=== PATIENT | female | born 1995 | race Caucasian/White ===

== ENCOUNTER 2017-02-20 12:14 | Emergency (ER) | payer SELFPAY ==
--- NOTE | ~2017-02-20 | ER ---
PATIENT'S NAME: KAYLAH JEWELL [facility] AGE: 21 Y [address] ROOM: [place] [id number] LOCATION: ED ADMIT DATE: 02/20/2017 ER/Outpatient Report DISCHARGE DATE: 02/20/2017 FAMILY PHYSICIAN: PHYSICIAN, RADHA ATTENDING PHYSICIAN: Warren Manuel TIME SEEN: 1210 hours. HISTORY OF PRESENT ILLNESS: The patient is a 21-year-old female who presents complaining of toothache. She said that over the last 14 days she has had some soreness in her right wisdom teeth, the pain has got more severe over the last 24 hours. She has also had some increased sinus drainage which has been purulent on occasion. ALLERGIES: INCLUDE CEFZIL WHICH BROKE OUT WITH HIVES. CURRENT MEDICATIONS: control. PAST MEDICAL HISTORY: Unremarkable for any chronic diseases. SURGERIES: Appendectomy, she has had some previous dental surgeries. SOCIAL HISTORY: Nonsmoker. Alcohol socially. REVIEW OF SYSTEMS: GENERAL: No fevers or chills. HEAD AND EENT: Some sinus drainage and dental pain involving her right upper wisdom tooth. RESPIRATORY: Negative. CARDIOVASCULAR: Negative. OBJECTIVE FINDINGS: VITAL SIGNS: Blood pressure 123/90, temperature 98, respiratory rate 19, pulse 98, and her O2 saturation 100%. GENERAL APPEARANCE: Anxious. No obvious distress. HEENT: Exam of her face, I could not appreciate any swelling. Her nasal passages are somewhat congested, especially on the right. I could not visualize any purulent drainage. Ears: TMs appeared normal. Mouth: Her right wisdom teeth is just partially erupted. It is quite tender. Rest of PATIENT'S NAME: KAYLAH JEWELL [facility] AGE: 21 Y [address] ROOM: [place], [place] [address] LOCATION: ED ADMIT DATE: 02/20/2017 ER/Outpatient Report DISCHARGE DATE: 02/20/2017 FAMILY PHYSICIAN: PHYSICIAN, NO ATTENDING PHYSICIAN: Warren Manuel her teeth appeared in good condition. NECK: She had no significant cervical adenopathy. ASSESSMENT: 1. Pain, right upper wisdom tooth, possible abscess. 2. Sinusitis. PLAN: Clindamycin or Cleocin 300 mg t.i.d. [place] 5/325, she is to have 1 or 2 every 4-6 hours for pain. Continue her ibuprofen. See her dentist on Wednesday. YUNIOR MOORE FOR MD MARY ANGELA/modl /[id number] d: 02/20/171815 t: 03/02/17 1741, OUTPATIENT REPORT
== END 2017-02-20 12:40 | disposition disaster alternative care site (69) ==
LOC: GMED 12:14
DX: K08.89 Other specified disorders of teeth and supporting structures (principal); J32.9 Chronic sinusitis, unspecified; Z88.1 Allergy status to other antibiotic agents; Z90.49 Acquired absence of other specified parts of digestive tract; Z98.890 Other specified postprocedural states